=== PATIENT | female | born 2000 | race Caucasian/White ===

== ENCOUNTER 2021-11-30 00:30 | Emergency (ER) | payer BC ==
[~2021-11-30] VITALS: Ht 165.1 cm; Wt 51.9 kg
[2021-11-30 00:49] VITALS: BP 121/82
--- NOTE | 2021-11-30 00:54 | NUR ---
WALKED IN C/O PELVIC PAIN X2 HOURS. +N/-V. PT STATES SHE WAS DX WITH CYSTS LAST YEAR AND STATES THIS PAIN FEELS SIMILAR TO THAT. 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 PMH CYSTS
--- NOTE | 2021-11-30 01:25 | NUR ---
PATIENT LEFT WITHOUT BEING SEEN BY DR. Orona. NO FURTHER CARE PROVIDED FOR PATIENT.
== END 2021-11-30 01:25 | disposition left against medical advice (07) ==
LOC: MED 00:30
DX: R10.2 Pelvic and perineal pain (principal); Z53.21 Procedure and treatment not carried out due to patient leaving prior to being seen by health care provider